=== PATIENT | male | born 2000 | race African-American/Black ===

== ENCOUNTER 2023-09-07 01:31 | Emergency (ER) | payer MEDICAID ==
[~2023-09-07] VITALS: Ht 190.5 cm; Wt 102.1 kg
[2023-09-07 01:36] VITALS: BP 136/73; PULSE 56; RESP 18; TEMP 97.6; O2SAT 98
[2023-09-07 02:04] LABS: APPEARANCE,URINE CLEAR (CLEAR); BILIRUBIN,URINE NEGATIVE (NEGATIVE); BLOOD, URINE NEGATIVE (NEGATIVE); COLOR,URINE YELLOW (YELLOW); LEUKOCYTE ESTERASE ,URINE NEGATIVE (NEGATIVE); NITRITE, URINE NEGATIVE (NEGATIVE); PH,URINE 6.5 (5.0-9.0); PROTEIN,URINE NEGATIVE (NEGATIVE); UGLUCOSE NEGATIVE (NEGATIVE); UROBILINOGEN,URINE 0.2 EU/dL (0.2 - 1)
[2023-09-07] MEDS ORDERED: NITR100C7 PO (02:51)
[2023-09-07] MEDS ORDERED: PYR100 PO (02:51)
== END 2023-09-07 02:55 | disposition home or self-care (01) ==
LOC: MED 01:31
DX: N30.90 Cystitis, unspecified without hematuria (principal); Z79.899 Other long term (current) drug therapy; Z91.011 Allergy to milk products
CPT/HCPCS: 81003; 99283

== ENCOUNTER 2023-12-10 18:04 | Emergency (ER) | payer MEDICAID ==
[~2023-12-10] VITALS: Ht 188 cm; Wt 100.2 kg
[~2023-12-10 18:04] MED LIST: NITR100C7 PO; PYR100 PO
[2023-12-10 18:07] VITALS: BP 139/91; PULSE 69; RESP 18; TEMP 98.5; O2SAT 99
[2023-12-10 19:09] LABS: APPEARANCE,URINE SL CLOUDY (CLEAR); BILIRUBIN,URINE NEGATIVE (NEGATIVE); BLOOD, URINE NEGATIVE (NEGATIVE); COLOR,URINE YELLOW (YELLOW); LEUKOCYTE ESTERASE ,URINE 1+ (NEGATIVE); NITRITE, URINE NEGATIVE (NEGATIVE); PROTEIN,URINE 1+ (NEGATIVE); UGLUCOSE NEGATIVE (NEGATIVE); UROBILINOGEN,URINE 0.2 EU/dL (0.2 - 1)
[2023-12-10 19:11] LABS: RBC,URINE 0 /HPF (0-5)
[2023-12-10 19:12] LABS: BACTERIA,URINE 2+ /HPF (None Seen); MUCUS,URINE None Seen /LPF (None Seen); SQUAMOUS EPITHELIAL CELL,UR 0-3 (FEW) /LPF (0-3 (FEW))
[2023-12-10] MEDS ORDERED: NITR100C7 PO (19:18)
[2023-12-10] MEDS ORDERED: PYR100 PO (19:18)
[2023-12-11 10:48] LABS: NEISSERIA GONORRHOEAE PCR Detected (NOTdetected)
[2023-12-13] MEDS ORDERED: VIB100 PO (20:00)
== END 2023-12-10 19:24 | disposition home or self-care (01) ==
LOC: MED 18:04
DX: N39.0 Urinary tract infection, site not specified (principal); Z91.011 Allergy to milk products; Z79.899 Other long term (current) drug therapy
CPT/HCPCS: 81001; 87086; 87491; 99283